=== PATIENT | female | born 1965 | race Two or more races ===

== ENCOUNTER 2022-03-09 22:03 | Emergency (ER) | payer MEDICAID ==
[2022-03-09 22:24] VITALS: BP 167/66
[2022-03-10 00:28] LABS: Urine Bacteria NONE SEEN /hpf (None Seen); Urine Blood Negative /uL (Negative); Urine Mucus FEW (None Seen); Urine WBC 2 /hpf (0 - 5)
[2022-03-10] MEDS ORDERED: KETOROLAC TROMETH 60MG/2ML VIAL IM ONE (03:15)
[2022-03-10] MEDS ORDERED: CYCL-837 PO (03:16)
[2022-03-10] MEDS ORDERED: IBUP800T27 PO (03:16)
== END 2022-03-10 03:27 | disposition home or self-care (01) ==
LOC: ER 22:03
DX: M54.50 Low back pain, unspecified (principal); E11.9 Type 2 diabetes mellitus without complications; I10 Essential (primary) hypertension
CPT/HCPCS: 72100; 81001; 82962; 96372; 99284; J1885

== ENCOUNTER 2022-09-09 02:56 | Emergency (ER) | payer MEDICAID ==
[~2022-09-09] VITALS: Ht 160 cm; Wt 73.0 kg
[2022-09-09 02:56] VITALS: BP 163/84
[~2022-09-09 02:56] MED LIST: CYCL-837 PO; IBUP800T27 PO
[2022-09-09] MEDS ORDERED: IBUP800T27 PO (04:15)
[2022-09-09] MEDS ORDERED: CYCL-837 PO (04:15)
[2022-09-09] MEDS ORDERED: KETOROLAC TROMETH 60MG/2ML VIAL IM ONE (04:15)
[2022-09-09] MEDS ORDERED: SULF800T7 PO (04:17)
[2022-09-09] MEDS ORDERED: cefTRIAXone SOD 1,000 MG VL IM ONE (04:30)
== END 2022-09-09 05:35 | disposition home or self-care (01) ==
LOC: ER 02:56
DX: S39.012A Strain of muscle, fascia and tendon of lower back, initial encounter (principal); N39.0 Urinary tract infection, site not specified; E11.65 Type 2 diabetes mellitus with hyperglycemia; I10 Essential (primary) hypertension; Z79.899 Other long term (current) drug therapy; Z98.890 Other specified postprocedural states; X58.XXXA Exposure to other specified factors, initial encounter; Y93.89 Activity, other specified; Y92.89 Other specified places as the place of occurrence of the external cause; Y99.8 Other external cause status
CPT/HCPCS: 81002; 81025; 96372; 99284; J0696; J1885